=== PATIENT | female | born 2000 | race African-American/Black ===

== ENCOUNTER 2018-07-16 14:19 | Outpatient (REF) | payer MEDICAID, SELFPAY ==
[2018-07-16 21:44] LABS: Absolute Basophil Count 0.01 k/cumm (0.0-0.2); Absolute Eosinophil Count 0.12 k/cumm (0.0-0.7); Absolute Lymphocyte Count 1.77 k/cumm (1.2-3.4); Absolute Monocyte Count 0.45 k/cumm (0.11-0.7); Absolute Neutrophil Count 4.08 k/cumm (1.2-6.7); Basophils % 0.2; Eosinophils % 1.9; HCT 36.8 % (36.0-46.0); HGB 11.9 g/dL (12.0-15.5); Lymphocytes % 27.5; Mean Corp. HGB Concentration 32.3 g/dL (32.0-36.0); Mean Corpuscular Hemoglobin 26.3 pg (27.0-33.0); Mean Corpuscular Volume 81.2 fL (80-95); Mean Platelet Volume 11.5 fL (8.0-11.0); Neutrophils % 63.4; Platelet Count 356 x1000/uL (130-400); RBC 4.53 m/cumm (4.00-5.20); RBC Distribution Width 15.5 % (11.7-14.6); White Blood Cell Count 6.43 k/cumm (4.4-10.8)
[2018-07-16 22:06] LABS: ALT 15 U/L (12-78); AST 22 U/L (15-37); Albumin 3.6 g/dL (3.4-5.0); Alkaline Phosphatase 86 U/L (46-116); Anion Gap 11.4 mmol/L (3-11); BUN 16 mg/dL (7-18); Bilirubin, Total 0.2 mg/dL (0.2-1.0); CO2 24.6 mmol/L (21.0-32.0); CREATININE 0.81 mg/dL (0.55-1.02); Chloride 105 mmol/L (98-107); Glucose 77 mg/dL (70-100); Lipase 95 U/L (73-393); Potassium 4.7 mmol/L (3.5-5.1); Sodium 141 mmol/L (136-145); Total Protein 7.5 g/dL (6.4-8.2)
[2018-07-16 22:34] LABS: Calcium 9.5 mg/dL (8.5-10.1)
== END 2018-07-16 14:39 ==
LOC: NCHCN 14:19
PROVIDERS: PCP Registered Nurse; Visit Provider Registered Nurse
DX: R13.10 Dysphagia, unspecified (principal); Z87.19 Personal history of other diseases of the digestive system
CPT/HCPCS: 80053; 83690; 85025

== ENCOUNTER 2019-01-21 12:08 | Emergency (ER) | payer MEDICAID, SELFPAY ==
[2019-01-21 12:16] VITALS: BP 119/64; PULSE 80; RESP 16; TEMP 36.6; O2SAT 98
--- NOTE | 2019-01-21 13:12 | ED.GENADUL_ITS ---
Discharge Plan Disposition Patient Disposition: HOME Condition: Improving Discharge Details Chief Complaint: Dizzy/Sync Clinical Impression: Acute streptococcal pharyngitis, Episode of syncope Primary Care Provider: KIARA FARNCES ED Provider: Kelsey Bullock Home Meds and New Rx's Prescriptions: New amoxicillin 500 mg tablet 500 mg PO BID 10 Days Qty: 20 RF: 0 Continued triamcinolone acetonide 0.025 % Cream TOPICAL DAILY AM RF: 0 epinephrine [EpiPen] 0.3 mg/0.3 mL Auto-Injector RF: 0 albuterol sulfate 90 mcg/actuation Hfa Aerosol Inhaler INHALATION RF: 0 (DME) Vortex Holding Chamber Spacer MISCELLANEOUS RF: 0 Omnaris 50 mcg [place],Non-Aerosol 2 spray INTRANASAL DAILY AM RF: 0 dicyclomine 10 mg Capsule 10 mg PO QID RF: 0 Spiriva with HandiHaler 18 mcg Capsule, W/Inhalation Device 1 cap inhalation DAILY AM RF: 0 Pazeo 0.7 % Drops 1 drp ophthalmic (eye) DAILY AM RF: 0 Advair HFA 115-21 mcg/actuation Hfa Aerosol Inhaler 2 puff INHALATION BID RF: 0 Discharge Instructions Instructions: Pharyngitis (ED), Syncope (ED) Additional Instructions: Drink plenty of fluids and get plenty of rest. Take the antibiotics until finished. Follow-up with primary care doctor next week for reevaluation. Return immediately to the emergency department if you develop any worsening or new concerning symptoms. Stand Alone Forms: Work Release Discharge Data Discharge Physician: Kelsey Bullock Medical Decision Making 18yo F w/ a h/o chronic abdominal pain with chronic GI bleeding who has had multiple EGDs and colonoscopies without specific diagnoses given presents status post syncopal episode prior to arrival and URI symptoms since this morning. EKG on arrival notes a rate of [address] ischemic changes. Vitals within normal limits. She has mild posterior pharyngeal erythema but no peritonsillar abscess, drooling, submandibular swelling and uvula is midline. She is speaking in full sentences. Lungs clear. Abdomen soft nontender. Moving all extremities. No meningeal signs. Differential diagnosis includes dehydration, electrolyte abnormality, influenza, strep pharyngitis. Considering patient's age and history, doubt arrhythmia. We were unable to obtain an IV and mom refused any further attempts. Able to obtain 1 tube of blood and mom refused any further blood draw. Lab was able to obtain CBC with a quick fingerstick. She states she would rather drink p.o. fluids. Labs reviewed and unremarkable. Urine test negative. Influenza n egative. Rapid strep positive. Patient was offered Bicillin but declines. She states she would prefer oral antibiotics. She is advised to follow-up with the primary care doctor for reevaluation and for referral for outpatient monitoring analyst if indicated. She is advised to return here immediately with any worsening or new concerning symptoms. Medical Records Medical records reviewed: Yes I reviewed the patient's medical records. Lab Data Lab results reviewed: Yes I reviewed the patient's lab results. Labs: 01/21/19 13:20 Nasopharynx Influenza Types A,B Antigen - Final Laboratory Tests Range/Units 01/21/19 01/21/19 13:45 14:28 WBC (4.4-10.8) k/cumm 5.54 RBC (4.00-5.20) m/cumm 4.71 Hgb (12.0-15.5) g/dL 12.2 Hct (36.0-46.0) % 37.5 MCV (80-95) fL 79.6 L MCH (27.0-33.0) pg 25.9 L MCHC (32.0-36.0) g/dL 32.5 RDW (11.7-14.6) % 14.6 Plt Count (130-400) x1000/uL 407 H MPV (8.0-11.0) fL 10.4 Immature Gran % 0.2 Neutrophils % 57.8 Lymphocytes % 31.0 Monocytes % 7.0 Eosinophils % 3.6 Basophils % 0.4 Absolute Neutrophils (1.2-6.7) k/cumm 3.20 Absolute Lymphocytes (1.2-3.4) k/cumm 1.72 Absolute Monocytes (0.11-0.7) k/cumm 0.39 Absolute Eosinophils (0.0-0.7) k/cumm 0.20 Absolute Basophils (0.0-0.2) k/cumm 0.02 Sodium (136-145) mmol/L 140 Potassium (3.5-5.1) mmol/L 4.0 Chloride (98-107) mmol/L 105 Carbon Dioxide (21.0-32.0) mmol/L 24.3 Anion Gap (3-11) mmol/L 10.7 BUN (7-18) mg/dL 8 Creatinine (0.55-1.02) mg/dL 0.91 Estimated GFR/1.73 m2 (mL/min/1.73m2) >= 60.00 Glucose (70-100) mg/dL 81 Calcium (8.5-10.1) mg/dL 8.6 Total Bilirubin (0.2-1.0) mg/dL 0.5 AST (15-37) U/L 22 ALT (14-59) U/L 13 L Alkaline Phosphatase (46-116) U/L 81 Total Protein (6.4-8.2) g/dL 8.1 Albumin (3.4-5.0) g/dL 3.7 ECG Data Attestation: I personally reviewed and interpreted this ECG (s) as follows: Interpretation: Rate of 65, sinus, T wave inversion in lead III. No acute ST elevation or depression. VA 150. QTc 393. QRS 86. HPI General Mode of arrival: ambulatory . Date/Time Provider Initiated Documentation: 01/21/19 12:41 . Limitations to Documentation: no limitations . Information obtained by: patient . HPI Narrative: Patient is a 18-year-old female with history of chronic abdominal pain and chronic GI bleeding who presents to the ED after syncopal episode at work. She does admit to recent dry cough and sore throat since this morning. She states that she was sitting at her desk when she felt nausea and had sweating, dizziness and felt like her hearing was muffled. She states she then awoke to feeling her boss tapping her on her shoulder. She states that she drinks plenty of fluids every day and that she mainly only eats strawberries in the morning. She does admit to stress at work recently. She denies any fever, neck pain, chest pain, shortness of breath, abdominal pain, urinary symptoms. Related Data Home Medications Medication Instructions Recorded Confirmed Advair HFA 2 puff INHALATION BID 01/21/19 01/21/19 Omnaris 2 spray INTRANASAL DAILY AM 01/21/19 01/21/19 Pazeo 1 drp OPHTHALMIC (EYE) DAILY AM 01/21/19 01/21/19 Spiriva with HandiHaler 1 cap INHALATION DAILY AM 01/21/19 01/21/19 Vortex Holding Chamber 01/21/19 01/21/19 albuterol sulfate INHALATION 01/21/19 amoxicillin 500 mg PO BID 10 Days #20 tab 01/21/19 dicyclomine 10 mg PO QID 01/21/19 01/21/19 epinephrine [EpiPen] 01/21/19 triamcinolone acetonide TOPICAL DAILY AM 01/21/19 Previous Rx's Medication Instructions Recorded amoxicillin 500 mg PO BID 10 Days #20 tab 01/21/19 Allergies Allergy/AdvReac Type Severity Reaction Status Date / Time No Known Allergies Allergy Unverified 01/21/19 12:27 General Stated Complaint: Dizzy/Sync MELBA: 3 Review of Systems Review of Systems ROS Unobtainable: All systems reviewed & are unremarkable except as noted in HPI and below Constitutional Constitutional: Reports as per HPI, Denies chills, Denies fever(s) and Reports headache(s) Eyes Eyes: Denies blurry vision ENT Ears, Nose, Mouth, and Throat: Denies dizziness, Reports headache(s), Denies sore throat and Denies throat swelling Cardiovascular Cardiovascular: Denies chest pain and Denies dyspnea Respiratory Respiratory: Denies cough and Denies dyspnea Gastrointestinal Gastrointestinal: Denies abdominal pain, Denies diarrhea and Denies vomiting Genitourinary Genitourinary: Denies hematuria and Denies dysuria Musculoskeletal Musculoskeletal: Denies back pain and Denies numbness Integumentary/Breasts Skin/Breast: Denies lesions and Denies rash Neurologic Neurologic: Denies dizziness, Reports headache(s), Denies focal weakness and Denies numbness Allergic/Immunologic Allergic/Immunologic: Denies throat swelling [facility] Medical History Chronic abdominal pain (Acute) Chronic GI bleeding (Acute) Seasonal allergies (Acute) Surgical History No significant past surgical history (Acute) Social History (Updated 01/21/19 @ 13:16 by Kelsey Bullock DO) Smoking/Tobacco Use Status: Never Alcohol Intake: never Drug use: Never Do you feel safe at home: Yes Do you feel safe in your relationship?: Yes Exam Const General: cooperative and healthy appearing Orientation: alert and awake [facility] Head: normal to inspection Ears: hearing grossly normal bilaterally, external ears normal and TM's normal bilaterally General nose exam: external nose normal Face and sinus: normal facial exam Mouth: oral mucosae normal Teeth and gingiva: dentition normal Throat: posterior oropharynx abnormal erythema; no edema and no exudates Eyes General: appearance normal, both eyes and all related structures Eyelids: eyelids normal Pupils: PERRL EOM: EOM intact bilaterally Neck Neck: normal visual inspection Lymphatic: no lymphadenopathy noted Chest Chest: normal inspection of the chest Resp Effort & Inspection: normal respiratory effort and able to speak in complete sentences Auscultation: clear to auscultation bilaterally Cardio Rate: regular rate Rhythm: regular rhythm GI Inspection: normal to inspection Palpation: soft, not firm, no guarding, no hepatosplenomegaly, no masses and nontender Auscultation: normal bowel sounds Back/Spine/Pelvis Back: no CVA tenderness Skin General skin exam: no rashes or lesions noted Neuro General: alert, awake and CN's II-XI intact bilaterally Cognition: normal cognition Speech: speech normal Gait: normal gait Motor: muscle tone normal throughout and strength 5/5 throughout Sensory Exam: no sensory deficits noted Extrem General: normal to inspection, full ROM and normal capillary refill Psych Appearance: grossly normal Mental Status: mental status grossly normal Speech and Movement: speech and movement normal Affect: normal affect Thought Process: normal Course Vital Signs Vital signs: Vital Signs Temperature 97.9 F 01/21/19 12:16 Pulse 80 01/21/19 12:16 Respiratory Rate 16 01/21/19 12:16 Blood Pressure 119/64 01/21/19 12:16 Pulse Oximetry 98 01/21/19 12:16 Temperature 97.9 F 01/21/19 12:16 Temperature Source Temporal Artery Scan 01/21/19 12:16 Pulse 80 01/21/19 12:16 Respiratory Rate 16 01/21/19 12:16 Blood Pressure 119/64 01/21/19 12:16 Blood Pressure Position Sitting 01/21/19 12:16 Pulse Oximetry 98 01/21/19 12:16 Oxygen Delivery Method Room Air 01/21/19 12:16 Oxygen Flow Rate 0 01/21/19 12:16 Pain Level 0 01/21/19 12:16 Comment 01/21/19 12:16
[2019-01-21] MEDS: Acetaminophen 500 MG TAB 1000 MG PO (14:01)
[2019-01-21] MEDS: Ibuprofen 600 MG TAB PO (14:01)
[2019-01-21 14:03] VITALS: RESP 18
[2019-01-21 14:04] LABS: ALT 13 U/L (14-59); AST 22 U/L (15-37); Albumin 3.7 g/dL (3.4-5.0); Alkaline Phosphatase 81 U/L (46-116); Anion Gap 10.7 mmol/L (3-11); BUN 8 mg/dL (7-18); Bilirubin, Total 0.5 mg/dL (0.2-1.0); CO2 24.3 mmol/L (21.0-32.0); CREATININE 0.91 mg/dL (0.55-1.02); Calcium 8.6 mg/dL (8.5-10.1); Chloride 105 mmol/L (98-107); Glucose 81 mg/dL (70-100); Sodium 140 mmol/L (136-145); Total Protein 8.1 g/dL (6.4-8.2)
[2019-01-21 14:44] LABS: Abs Immature Grans 0.01 k/cumm (0.0-0.09); Absolute Basophil Count 0.02 k/cumm (0.0-0.2); Absolute Lymphocyte Count 1.72 k/cumm (1.2-3.4); Absolute Monocyte Count 0.39 k/cumm (0.11-0.7); Basophils % 0.4; Eosinophils % 3.6; HCT 37.5 % (36.0-46.0); HGB 12.2 g/dL (12.0-15.5); Immature Grans % 0.2; Mean Corp. HGB Concentration 32.5 g/dL (32.0-36.0); Mean Corpuscular Hemoglobin 25.9 pg (27.0-33.0); Mean Corpuscular Volume 79.6 fL (80-95); Mean Platelet Volume 10.4 fL (8.0-11.0); Neutrophils % 57.8; Platelet Count 407 x1000/uL (130-400); RBC 4.71 m/cumm (4.00-5.20); RBC Distribution Width 14.6 % (11.7-14.6); White Blood Cell Count 5.54 k/cumm (4.4-10.8)
[2019-01-21 15:09] VITALS: BP 131/66; PULSE 76; RESP 16; TEMP 36.6; O2SAT 100
== END 2019-01-21 15:10 | disposition home or self-care (01) ==
PROVIDERS: Emergency Provider Physician Assistant; PCP Registered Nurse
DX: R55 Syncope and collapse (principal); J02.0 Streptococcal pharyngitis
CPT/HCPCS: 36415; 80053; 87449; 85025

== ENCOUNTER 2019-06-01 19:14 | Outpatient (REF) | payer MEDICAID, SELFPAY ==
[2019-06-01 21:20] LABS: Absolute Basophil Count 0.01 k/cumm (0.0-0.2); Absolute Lymphocyte Count 1.49 k/cumm (1.2-3.4); Basophils % 0.2; Eosinophils % 2.2; HCT 40.7 % (36.0-46.0); HGB 13.2 g/dL (12.0-15.5); Lymphocytes % 33.1; Mean Corp. HGB Concentration 32.4 g/dL (32.0-36.0); Mean Corpuscular Hemoglobin 26.9 pg (27.0-33.0); Mean Corpuscular Volume 83.1 fL (80-95); Mean Platelet Volume 11.5 fL (8.0-11.0); Monocytes % 6.7; Neutrophils % 57.8; Platelet Count 339 x1000/uL (130-400); RBC Distribution Width 15.3 % (11.7-14.6)
[2019-06-01 21:44] LABS: ALT 14 U/L (14-59); AST 17 U/L (15-37); Albumin 3.8 g/dL (3.4-5.0); Alkaline Phosphatase 64 U/L (46-116); Anion Gap 8.2 mmol/L (3-11); BUN 10 mg/dL (7-18); Bilirubin, Total 0.5 mg/dL (0.2-1.0); CO2 26.8 mmol/L (21.0-32.0); CREATININE 0.91 mg/dL (0.55-1.02); Calcium 8.8 mg/dL (8.5-10.1); Chloride 106 mmol/L (98-107); Glucose 76 mg/dL (74-106); Potassium 4.4 mmol/L (3.5-5.1); Sodium 141 mmol/L (136-145); TSH 1.25 uIU/mL (0.36-3.74); Total Protein 7.4 g/dL (6.4-8.2)
== END 2019-06-01 19:34 ==
LOC: NCHCN 19:14
PROVIDERS: PCP Registered Nurse; Visit Provider Registered Nurse
DX: R55 Syncope and collapse (principal)
CPT/HCPCS: 80053; 84443; 85025

== ENCOUNTER 2020-05-20 20:17 | Outpatient (REF) | payer MEDICAID, SELFPAY ==
[2020-05-20 21:22] LABS: HCT 39.9 % (36.0-46.0); HGB 12.8 g/dL (11.2-15.7); MCH 26.8 pg (27.0-33.0); MCHC 32.1 % (32.0-36.0); MCV 83.6 fL (80-95); MPV 11.1 fL (8.0-11.0); Platelet Count 320 10^3/uL (130-400); RBC 4.77 10^6/uL (3.93-5.22); RDW 13.5 % (11.7-14.6); RDW-SD 41.9 fL
[2020-05-22 12:44] LABS: COVID-19 RT-PCR UVMMC Result Negative (Negative)
== END 2020-05-20 20:18 | disposition home or self-care (01) ==
LOC: NCHCN 20:17
PROVIDERS: PCP Registered Nurse; Visit Provider Registered Nurse
DX: K92.1 Melena (principal); Z20.822 Contact with and (suspected) exposure to COVID-19
CPT/HCPCS: 85027; U0003